=== PATIENT | female | born 1975 | race Caucasian/White ===

== ENCOUNTER 2020-09-02 09:19 | Outpatient (CLI) | payer OTHER ==
--- NOTE | 2020-09-02 10:55 | RAD ---
2 VIEW CHEST: Date: 09/02/2020 INDICATION: Dyspnea. FINDINGS: Lungs appear clear. No evidence of infiltrate. No effusion. Heart and mediastinum appear normal. Osse ous structures appear unremarkable. IMPRESSION: No acute process identified. POS: [facility]
== END 2020-09-02 09:20 | disposition home or self-care (01) ==
LOC: BICRAD 09:19
PROVIDERS: ATTEND Family Medicine
DX: R06.00 Dyspnea, unspecified (principal)
CPT/HCPCS: 71046

== ENCOUNTER 2022-08-03 09:12 | Outpatient (CLI) | payer OTHER | END 2022-08-03 09:13 | disposition home or self-care (01) | LOC: BICULT 09:12 | PROVIDERS: ATTEND Physician Assistant Medical | DX: R10.13 Epigastric pain (principal); K26.4 Chronic or unspecified duodenal ulcer with hemorrhage; D62 Acute posthemorrhagic anemia; K76.0 Fatty (change of) liver, not elsewhere classified; R16.0 Hepatomegaly, not elsewhere classified; R93.2 Abnormal findings on diagnostic imaging of liver and biliary tract | CPT/HCPCS: 76705 ==